=== PATIENT | female | born 1955 | race Caucasian/White ===

== ENCOUNTER → 2022-03-26 09:00 | Outpatient (BNVA) | payer OTHER, SELFPAY | PROVIDERS: PCP Family Medicine; Visit Provider Family Medicine Adult Medicine | DX: N39.0 Urinary tract infection, site not specified (principal) | CPT/HCPCS: 81000 ==

== ENCOUNTER → 2022-04-11 08:09 | Outpatient (BNVA) | payer OTHER, SELFPAY | PROVIDERS: PCP Family Medicine; Visit Provider Family Medicine | DX: Z13.6 Encounter for screening for cardiovascular disorders (principal) | CPT/HCPCS: 80053; 80061; 85025 ==

== ENCOUNTER 2022-04-17 10:30 | Outpatient (CLI) | payer OTHER, SELFPAY ==
--- NOTE | 2022-04-17 10:42 | MM_ITS ---
WS: [id number] Bilateral screening 3D tomosynthesis digital mammogram, 04/17/2022 Clinical Data: screening mammogram Comparison: None. Findings: The breast parenchymal pattern shows fibroglandular tissue. No spiculated masses or clustered calcifi cations are seen. There are no secondary signs of carcinoma. MM/[place] [id number] Impression: 1. Negative bilateral mammogram with no prior exam for review. 2. Recommend annual screening mammograms. BIRADS: 1-Negative FOLLOW UP: 1 Year Follow-up The CAD supervisor food checkers and cashiers was used.
== END 2022-04-17 10:31 | disposition home or self-care (01) ==
LOC: RAD 10:35
PROVIDERS: PCP Family Medicine; Visit Provider Family Medicine
DX: Z12.31 Encounter for screening mammogram for malignant neoplasm of breast (principal)
CPT/HCPCS: 77063; 77067

== ENCOUNTER → 2023-03-21 09:46 | Outpatient (BNVA) | payer OTHER, SELFPAY | PROVIDERS: PCP Family Medicine; Visit Provider Family Medicine | DX: Z00.00 Encounter for general adult medical examination without abnormal findings (principal); Z13.6 Encounter for screening for cardiovascular disorders; L65.9 Nonscarring hair loss, unspecified | CPT/HCPCS: 80053; 80061; 81003; 84443; 85025 ==

== ENCOUNTER → 2023-04-02 10:56 | Outpatient (BNVA) | payer MEDICARE, SELFPAY | PROVIDERS: PCP Family Medicine; Referring Provider Family Medicine; Visit Provider Surgery | DX: Z12.11 Encounter for screening for malignant neoplasm of colon (principal) | CPT/HCPCS: 99024; 99203 ==

== ENCOUNTER → 2023-04-09 11:28 | Outpatient (BNVA) | payer MEDICARE, SELFPAY | PROVIDERS: PCP Family Medicine; Visit Provider Family Medicine | DX: R31.9 Hematuria, unspecified (principal); Z01.419 Encounter for gynecological examination (general) (routine) without abnormal findings | CPT/HCPCS: 81000; 81003; 87086; 87624 ==

== ENCOUNTER 2023-04-19 12:44 | Outpatient (CLI) | payer MEDICARE, SELFPAY ==
--- NOTE | 2023-04-19 13:00 | XR_ITS ---
WS: [id number] SCREENING DEXA SCAN [employer] CLINICAL INFORMATION: postmenopausal COMPARISON: 2019 FINDINGS: The L1-L4 bone mineral density measures 0.875 g/cm2. This corresponds to a T score score of -2.5 and Z score of -0.5. Left femoral neck bone mineral density measures 0.713 g/cm2. This corresponds to a T score of -2.3 an d Z score of -0.8. Right femoral neck bone mineral density measures 0.713 g/cm2. This corresponds to a T score -2.3of an d Z score of -0.8. Mean femoral neck bone mineral density measures 0.713 g/cm2. This corresponds to a T score of -2.3 an d Z score of -0.8. IMPRESSION: Osteoporosis lumbar spine at the lower end of the range. Osteopenia femoral necks. Patient's FRAX calculated 10 year probability for major osteoporotic fracture is 14.4% and osteoporot ic hip fracture is 4.0%.
--- NOTE | 2023-04-19 13:02 | MM_ITS ---
WS: [id number] Bilateral screening 3D tomosynthesis digital mammogram, 04/19/2023 Clinical Data: screening Comparison: 04/17/2022, 05/28/2018, 10/12/2016. Findings: The breast parenchymal pattern shows fibroglandular tissue. There is prominent tissue in the anterior aspect of the left breast and the superior aspect of the left breast but it has not changed. No spic ulated masses or clustered calcifications are seen. There are no secondary signs of carcinoma. Impression: 1. Negative bilateral mammogram unchanged. 2. Recommend annual screening mammograms. MM/[place] [id number] BIRADS: 1-Negative FOLLOW UP: 1 Year Follow-up The CAD rechecker was used.
== END 2023-04-19 12:45 | disposition home or self-care (01) ==
LOC: RAD 12:45
PROVIDERS: PCP Family Medicine; Visit Provider Family Medicine
DX: Z12.31 Encounter for screening mammogram for malignant neoplasm of breast (principal); Z13.820 Encounter for screening for osteoporosis; Z78.0 Asymptomatic menopausal state; M81.0 Age-related osteoporosis without current pathological fracture; M85.852 Other specified disorders of bone density and structure, left thigh; M85.851 Other specified disorders of bone density and structure, right thigh
CPT/HCPCS: 77063; 77067; 77080

== ENCOUNTER → 2023-07-02 10:12 | Outpatient (BNVA) | payer MEDICARE, SELFPAY | PROVIDERS: PCP Family Medicine; Visit Provider Surgery | DX: Z12.11 Encounter for screening for malignant neoplasm of colon (principal) | CPT/HCPCS: 99024; 99213 ==

== ENCOUNTER 2023-08-06 06:34 | Day surgery (SDC) | payer MEDICARE, SELFPAY ==
--- NOTE | 2023-08-06 05:59 | W.PM.OPSFHP ---
Same Day Surgery H&P Indication for Procedure/HPI DATE OF PROCEDURE: August 06, 2023 CHIEF COMPLAINT/INDICATIONFOR SURGICAL PROCEDURE: positive cologuard PREOP DIAGNOSIS: positive colguard PLANNED PROCEDURE: Operation Date: 08/06/23 07:40 Proposed Procedures p Colonoscopy 44518, G0105, Z12.11(Not Applicable) - Yannick Ogden MD Medications/Allergies* Home Medications Medication Instructions Recorded Confirmed Type conjugated estrogens 0.625 mg/gram 0.625 mg vaginal PER PKG DIR 08/01/23 08/01/23 History vaginal cream (Premarin) Allergies/Adverse Reactions Allergy/AdvReac Type Severity Reaction Status Date / Time erythromycin base Allergy violent Verified 08/01/23 10:54 vomnting and diarrhea Penicillins Allergy Unknown Verified 08/01/23 10:54 Pertinent History/Comorbid Conditions* Medical History (Updated 04/09/23 @ 11:53 by Judy Lindsey DO) Migraine Gastritis Surgical History (Updated 11/14/20 @ 13:39 by Judy Lindsey DO) Hx of esophagogastroduodenoscopy 2017 Social History Smoking and tobacco/nicotine status: never used tobacco/nicotine Second hand smoke exposure: No Alcohol intake: former Former alcohol use details: occasional social drinker Substance/Drug Use: never Adopted: Yes Caregiver/support person: No Lives independently: Yes Household members: spouse Housing: House Marital status: Number of children: 2 Number of grandchildren: 5 Highest education level completed: High School Graduate service: No Current occupational status: retired Pets and animals: No Current gender identity: Female Pertinent Exam Findings alert, oriented x 3 and clear to auscultation bilaterally Recommendations Surgery/Procedure today Coding Level of Care Code Acute Code for Chg Fwd
[2023-08-06 06:59] VITALS: BP 122/67; PULSE 90; RESP 18; TEMP 36.4; O2SAT 98; BMI 21.7
[2023-08-06] MEDS: sodium chloride 0.9% 1,000 ML 30 ML IV (07:06)
--- NOTE | 2023-08-06 07:30 | ANES.PREANE2 ---
Pre-Anesthetic Assessment Height/Weight: Height 1.55 m Weight 52.163 kg Temp Pulse Resp BP Pulse Ox O2 Del Method 97.5 F L 90 18 122/67 98 Room Air 08/06/23 06:59 08/06/23 06:59 08/06/23 06:59 08/06/23 06:59 08/06/23 06:59 08/06/23 06:59 Preop Diagnosis: positive colguard Operation Date: 08/06/23 07:40 Proposed Procedures p Colonoscopy 68606, G0105, Z12.11(Not Applicable) - Yannick Ogden MD Familial anesthetic complications: None Was Beta Sunil taken within 24 hours: N/A Was Clonidine taken within 24 hours: N/A Last intake: Intake Last Liquid Date 08/05/23 Last Liquid Time 21:30 Last Solid Date 08/04/23 Last Solid Time 21:00 Social No alcohol and No tobacco Exam alert, oriented x 3, clear to auscultation bilaterally and regular rate & rhythm Airway Mallampati: Class II Dentition: full Anesthetic Plan ASA status: 1 Anesthesia: MAC Risk of > 500 ml blood loss (7ml/kg in children): No Medications/Allergies Home Medications Medication Instructions Recorded Confirmed Last Taken Type sumatriptan succinate 100 mg tablet 100 mg PO Q2H PRN migraine 03/21/23 08/06/23 1 Month Ago Rx headache #9 tabs ~07/06/23 triamcinolone acetonide 0.1 % 1 applic topical BID #80 grams 03/21/23 08/06/23 2 Weeks Ago Rx topical ointment ~07/23/23 conjugated estrogens 0.625 mg/gram 0.625 mg vaginal PER PKG DIR 08/01/23 08/06/23 08/03/23 History vaginal cream (Premarin) Allergies Allergy/AdvReac Type Severity Reaction Status Date / Time erythromycin base Allergy violent Verified 08/01/23 10:54 vomnting and diarrhea Penicillins Allergy Unknown Verified 08/01/23 10:54 Current Medications Generic Name Dose Route Start Last Admin Trade Name Freq PRN Reason Stop Dose Admin Sodium Chloride 1,000 mls @ 30 mls/hr 08/06/23 06:45 08/06/23 07:06 Sodium Chloride 0.9% IV 30 mls/hr .Q24H ALCIDES Administration PFSH Anesthesia Medical History Migraine Gastritis Surgical History Hx of esophagogastroduodenoscopy 2017 Social History Smoking and tobacco/nicotine status: never used tobacco/nicotine Second hand smoke exposure: No Alcohol intake: former Former alcohol use details: occasional social drinker Substance/Drug Use: never Adopted: Yes Caregiver/support person: No Lives independently: Yes Household members: spouse Housing: House Marital status: Number of children: 2 Number of grandchildren: 5 Highest education level completed: High School Graduate service: No Current occupational status: retired Pets and animals: No Current gender identity: Female Data Anesthesia Cardiac Studies: No Data to Display
[2023-08-06 07:54] VITALS: BP 117/61; PULSE 74; RESP 10; TEMP 36.1; O2SAT 100
[2023-08-06 08:08] VITALS: BP 131/67; PULSE 69; RESP 12; O2SAT 98
--- NOTE | 2023-08-06 08:40 | ANE.PACU2 ---
Inpatient post-anesthesia follow up: Airway intact: Yes Vital signs: Temperature 97 F Pulse Rate 69 Respiratory Rate 12 Blood Pressure 131/67 Pulse Oximetry 98 Oxygen Delivery Me thod Room Air Oxygen Flow Rate Fraction of Inspir ed Oxygen Hydration adequate: Yes Nausea and vomiting: No Pain level: 1 Mental status: Baseline
== END 2023-08-06 08:40 | disposition home or self-care (01) ==
PROVIDERS: PCP Family Medicine; Visit Provider Surgery
PROC: 0DJD8ZZ Inspection of Lower Intestinal Tract, Via Natural or Artificial Opening Endoscopic (ICD-10-PCS; CPT 45378; principal; 2023-08-06 07:40)
DX: Z12.11 Encounter for screening for malignant neoplasm of colon (principal); K57.30 Diverticulosis of large intestine without perforation or abscess without bleeding
CPT/HCPCS: G0121; J2704; J7030

== ENCOUNTER → 2024-06-19 15:04 | Outpatient (BNVA) | payer MEDICARE, SELFPAY | PROVIDERS: PCP Family Medicine; Visit Provider Family Medicine | DX: Z13.6 Encounter for screening for cardiovascular disorders (principal) | CPT/HCPCS: 80053; 80061; 82607; 84439; 84443; 85025 ==

== ENCOUNTER → 2024-07-08 11:10 | Outpatient (BNVA) | payer MEDICARE, SELFPAY | PROVIDERS: PCP Family Medicine; Visit Provider Surgery | DX: K29.70 Gastritis, unspecified, without bleeding (principal) | CPT/HCPCS: 99214 ==

== ENCOUNTER 2024-08-05 10:18 | Day surgery (SDC) | payer MEDICARE, SELFPAY ==
[2024-08-05 10:38] VITALS: BP 119/66; PULSE 65; RESP 16; TEMP 36.7; O2SAT 98
[2024-08-05] MEDS: sodium chloride 0.9% 1,000 ML 15 ML IV (10:48)
--- NOTE | 2024-08-05 10:51 | W.PM.OPSUD ---
Surgery/Procedure H&P Update DATE OF PROCEDURE: August 05, 2024 DATE H&P PERFORMED: 07/08/24 H&P UPDATE INFORMATION: I have reviewed H&P completed within last 30 days, I have examined patient prior to procedure, No changes to prior documentation, Changes to prior documentation as noted here and Risks and benefits of the procedure reviewed PLANNED PROCEDURE: Operation Date: 08/05/24 12:20 Proposed Procedures p EGD 28348 K29.70 R10.9(Not Applicable) - Yannick Ogden MD
--- NOTE | 2024-08-05 10:53 | W.PM.OPSUD ---
Surgery/Procedure H&P Update DATE OF PROCEDURE: August 05, 2024 DATE H&P PERFORMED: 07/08/24 H&P UPDATE INFORMATION: I have reviewed H&P completed within last 30 days, I have examined patient prior to procedure, No changes to prior documentation, H&P is in [facility] EMR on date indicated and Risks and benefits of the procedure reviewed PLANNED PROCEDURE: Operation Date: 08/05/24 12:20 Proposed Procedures p EGD 22450 K29.70 R10.9(Not Applicable) - Yannick Ogden MD
--- NOTE | 2024-08-05 11:03 | ANES.PREANE2 ---
Pre-Anesthetic Assessment Height/Weight: Height 1.55 m Weight 44.452 kg Temp Pulse Resp BP Pulse Ox O2 Del Method 98.0 F 65 16 119/66 98 Room Air 08/05/24 10:38 08/05/24 10:38 08/05/24 10:38 08/05/24 10:38 08/05/24 10:38 08/05/24 10:38 Preop Diagnosis: Abd pain Operation Date: 08/05/24 12:20 Proposed Procedures p EGD 22551 K29.70 R10.9(Not Applicable) - Yannick Ogden MD Was Beta Sunil taken within 24 hours: N/A Was Clonidine taken within 24 hours: N/A Last intake: Intake Last Liquid Date 08/05/24 Last Liquid Time 07:30 Last Solid Date 08/04/24 Last Solid Time 22:00 Social No alcohol and No tobacco Exam alert, oriented x 3, clear to auscultation bilaterally and regular rate & rhythm Airway Submandibular: within normal limits Cervical ROM: within normal limits Mallampati: Class II Dentition: full History/ROS No significant history except as noted and No significant complaints Pulmonary None reported CV/HEM None reported None reported Hepatic None reported GI None reported Metabolic None reported Musc/skel None reported Neuropsych None reported Anesthetic Plan ASA status: 1 Anesthesia: Anesthesia Evaluation and MAC Risk of > 500 ml blood loss (7ml/kg in children): No Medications/Allergies Home Medications ?Medication ?Instructions ?Recorded ?Confirmed ?Last Taken ?Type conjugated estrogens 0.625 mg/gram 0.625 mg vaginal PER PKG DIR #30 03/18/24 08/03/24 08/01/24 Rx vaginal cream (Premarin) grams sumatriptan succinate 100 mg tablet 100 mg PO Q2H PRN migraine 05/25/24 08/03/24 3 Days Ago Rx headache #9 tabs ~07/31/24 triamcinolone acetonide 0.1 % 1 applic topical BID #80 grams 08/03/24 08/04/24 08/04/24 Rx topical ointment Allergies Allergy/AdvReac Type Severity Reaction Status Date / Time corn Allergy ADR-Diarrhe Verified 08/03/24 09:54 a erythromycin base Allergy violent Verified 07/08/24 11:11 vomnting and diarrhea inverted sugar Allergy ADR-Diarrhe Verified 08/03/24 09:54 a Penicillins Allergy Unknown Verified 07/08/24 11:11 soy Allergy ADR-Diarrhe Verified 08/03/24 09:54 a Current Medications Generic Name Dose Route Start Last Admin Trade Name Freq PRN Reason Stop Dose Admin Sodium Chloride 1,000 mls @ 15 mls/hr 08/05/24 10:28 08/05/24 10:48 Sodium Chloride 0.9% IV 08/06/24 10:27 15 mls/hr .Q24H PRN Administration COLONOSCOPY FLUIDS PFSH Anesthesia Medical History Screening for cardiovascular condition Vaginal dryness Migraine Gastritis Surgical History (Updated 07/08/24 @ 11:[address]) Hx of esophagogastroduodenoscopy 2017 Social History Smoking and tobacco/nicotine status: never used tobacco/nicotine Second hand smoke exposure: No Alcohol intake: former Former alcohol use details: occasional social drinker Substance/Drug Use: never Adopted: Yes Caregiver/support person: No Lives independently: Yes Household members: spouse Housing: House Marital status: Number of children: 2 Number of grandchildren: 5 Highest education level completed: High School Graduate service: No Current occupational status: retired Pets and animals: No Current gender identity: Female
[2024-08-05 11:31] VITALS: BP 109/63; PULSE 76; RESP 20; TEMP 36.4; O2SAT 99
[2024-08-05 11:50] VITALS: BP 114/71; PULSE 75; RESP 17; O2SAT 99
--- NOTE | 2024-08-05 12:05 | ANE.PACU2 ---
Inpatient post-anesthesia follow up: Airway intact: Yes Vital signs: Temperature 97.5 F Pulse Rate 75 Respiratory Rate 17 Blood Pressure 114/71 Pulse Oximetry 99 Oxygen Delivery Me thod Room Air Oxygen Flow Rate 3 Fraction of Inspir ed Oxygen Hydration adequate: Yes Nausea and vomiting: No Pain level: 1 Mental status: Baseline
== END 2024-08-05 12:05 | disposition home or self-care (01) ==
PROVIDERS: PCP Family Medicine; Visit Provider Surgery
PROC: 0DJ08ZZ Inspection of Upper Intestinal Tract, Via Natural or Artificial Opening Endoscopic (ICD-10-PCS; principal; 2024-08-05 12:20)
DX: K29.30 Chronic superficial gastritis without bleeding (principal); K21.9 Gastro-esophageal reflux disease without esophagitis; K44.9 Diaphragmatic hernia without obstruction or gangrene; Z88.0 Allergy status to penicillin; Z88.1 Allergy status to other antibiotic agents
CPT/HCPCS: 43239; 88305; J2704; J7030; J9999

== ENCOUNTER → 2024-08-18 13:55 | Outpatient (BNVA) | payer MEDICARE, SELFPAY | PROVIDERS: PCP Family Medicine; Visit Provider Surgery | DX: Z09 Encounter for follow-up examination after completed treatment for conditions other than malignant neoplasm (principal) | CPT/HCPCS: 99213 ==

== ENCOUNTER 2024-10-21 13:00 | Outpatient (CLI) | payer MEDICARE, SELFPAY ==
--- NOTE | 2024-10-21 13:07 | MM_ITS ---
WS: [id number] BILATERAL 3D TOMOSYNTHESIS DIGITAL SCREENING MAMMOGRAPHY WITH CAD CLINICAL INFORMATION: SCREENING HISTORY: Screening mammogram. No current complaints. COMPARISON: 2023 TECHNIQUE: Bilateral CC and MLO views. FINDINGS: Scattered fibroglandular densities bilaterally. No suspicious focal mass, asymmetry, calcifications, or architectural distortion. No evidence of malignancy. Punctate and lucent centered calcifications LEFT breast. Stable dense parenchymal tissue upper outer LEFT breast and anterior RIGHT breast MM/MM scr tomosynthesis [id number] IMPRESSION: DENSITY: There are scattered areas of fibroglandular density. BI-RADS: 2 - Benign. FOLLOW UP: 1 Year Follow-up Recommend return to annual screening mammography.
== END 2024-10-21 13:01 | disposition home or self-care (01) ==
LOC: RAD 13:01
PROVIDERS: PCP Family Medicine; Visit Provider Family Medicine
DX: Z12.31 Encounter for screening mammogram for malignant neoplasm of breast (principal); R92.323 Mammographic fibroglandular density, bilateral breasts
CPT/HCPCS: 77063; 77067